=== PATIENT | male | born 1960 | race Caucasian/White ===

== ENCOUNTER 2017-03-28 18:57 | Emergency (ER) | payer OTHER ==
[2017-03-28] MEDS ORDERED: Dextrose 50% 50 mL Abboject IVP ONE ×2 (19:03→21:15)
[2017-03-28] MEDS ORDERED: Dextrose 50% 50 mL Abboject IVP STA ×2 (19:11→21:08)
[2017-03-28 19:44] LABS: % BASOPHILS 0.1 % (0.0-2.0); % EOSINOPHILS 0.4 % (0.0-5.0); % NEUTROPHILS 85.5 % (40.0-80.0); HEMATOCRIT 41.7 % (39.0-49.0); HEMOGLOBIN 14.1 gm/dL (13.2-17.3); MEAN CELL VOLUME 88.7 fl (80-99); MEAN CORPUSCULAR HGB CONC 33.8 pg (28.0-36.0); MEAN PLATELET VOLUME 6.9 fl; NEUTROPHILE ABSOLUTE 8.6 Th/cmm (1.8-8.0); PLATELET COUNT 204 Th/cmm (150-400); RED CELL DISTRIBUTION WIDTH 12.2 % (11.5-20.0)
[2017-03-28 20:01] LABS: ALB/GLOB RATIO 1.2 (1.0-1.8); ALKALINE PHOSPHATASE 77 U/L (34-104); ANION GAP 7.4 (7.0-16.0); BILIRUBIN,TOTAL 1.3 mg/dL (0.3-1.0); BUN - UREA NITROGEN 24 mg/dL (7-25); CALCIUM SERUM 9.4 mg/dL (8.6-10.3); CARBON DIOXIDE 27.8 mEq/L (21.0-31.0); CHLORIDE 101 mEq/L (98-107); GLUCOSE 137 mg/dL (70-105); POTASSIUM SERUM 3.2 mEq/L (3.5-5.1); SGOT 15 U/L (13-39); SGPT/ALT 13 U/L (7-52); SODIUM SERUM 133 mEq/L (136-145)
[2017-03-28 20:02] LABS: CHOLESTEROL 155 mg/dL (<200); TRIGLYCERIDES 449 mg/dL (<150)
[2017-03-28] MEDS ORDERED: Potassium Chloride Elixir 20 mEq /15 mL UDC PO ONE (20:09)
--- NOTE | 2017-03-28 20:13 | ED Physician Chart ---
Chief Complaint/HPI - Patient Information Date Seen:: 03/28/17 Time Seen:: 19:20 Chief Complaint:: hypoglycemic episode History of Present Illness:: THIS IS A 56 YO MALE BIB EMS FROM HOME BECAUSE HIS BLOOD SUGAR WAS ONLY 30. HE WAS ALTERED AND UNABLE TO GIVE AN ACCURATE ACCOUNT OF HIS SITUATION. HIS HEALTH RECORDS WERE SENT HERE FROM [place] AND IT WAS NOTED THAT HE IS DIABETIC, HYPERTENSIVE WITH HEART DISEASE WITH A STROKE IN THE PAST. Allergies:: Allergies Allergy/AdvReac Type Severity Reaction Status Date / Time No Known Allergies Allergy Verified 03/28/17 19:12 Vitals:: Vital Signs - 8 hr 03/28/17 19:14 Temp 97.5 F HR 79 RR 18 BP 205/62 O2 Sat % 99 Historian:: EMS, Medical Records Review:: Nurse's Note Reviewed, Transfer documents Reviewed Review of Systems - Review of Systems General/Constitutional: No fever, No chills, No weight loss, No weakness, No diaphoresis, No edema, No loss of appetite Skin: No skin lesions, No rash, No bruising, Other (THE PATIENT WAS UNABLE TO GIVE A REVIEW OF SYSTEMS) Head: No headache, No light-headedness Eyes: No loss of vision, No pain, No diplopia ENT: No earache, No nasal drainage, No sore throat, No tinnitus Neck: No neck pain, No swelling, No thyromegaly, No stiffness, No mass noted Cardio Vascular: No chest pain, No palpitations, No PND, No orthopnea, No edema Pulmonary: No SOB, No cough, No sputum, No wheezing GI: No nausea, No vomiting, No diarrhea, No pain, No melena, No hematochezia, No constipation, No hematemesis G/U: No dysuria, No frequency, No hematuria Musculoskeletal: No bone or joint pain, No back pain, No muscle pain Endocrine: No polyuria, No polydipsia Psychiatric: No prior psych history, No depression, No anxiety, No suicidal ideation Hematopoietic: No bruising, No lymphadenopathy Allergic/Immuno: No urticaria, No angioedema Neurological: No syncope, No focal symptoms, No weakness, No paresthesia, No headache, No seizure, No dizziness, No confusion, No vertigo Past Medical History - Past Medical History Obtainable: Yes Past Medical History: HTN, DM, CAD, CVA/TIA, Dyslipidemia, PUD/GERD Family History: None Social History: Non Smoker, No Alcohol, No Drug Use, Surgical History: Cholecystectomy, other (stent placed in the heart) Family Medical History - Family Member Father History Unknown: Yes Hx Family Diabetes: Yes Physical Exam - Physical Examination General/Constitutional: Awake, Well-developed, well-nourished, Alert, No distress, GCS 15, Non-toxic appearing, Ambulatory Other Gen/Cons comments:: THE PATIENT IS ALERT BUT CONFUSED WITH ILLOGICAL STATMENTS. Head: Atraumatic Eyes: Lids, conjuctiva normal, PERRL, EOMI Skin: Nl inspection, No rash, No skin lesions, No ecchymosis, Well hydrated, No lymphadenopathy ENMT: External ears, nose nl, Nasal exam nl, Lips, teeth, gums nl Neck: Nontender, Full ROM w/o pain, No JVD, No nuchal rigidity, No bruit, No mass, No stridor Respiratory: Nl effort/Exclusion, Clear to Auscultation, No Wheeze/Rhonchi/Rales Cardio Vascular: RRR, No murmur, gallop, rubs, NL S1 S2 GI: No tenderness/rebounding/guarding, No organomegaly, No hernia, Normal BS's, Nondistended, No mass/bruits, No McBurney tenderness : No CVA tenderness Extremities: No tenderness or effusion, Full ROM, normal strength in all extremities, No edema, Normal digits & nails Neuro/Psych: Alert/oriented, DTR's symmetric, Normal sensory exam, Normal motor strength, Judgement/insight normal, Mood normal, Normal gait, No focal deficits Misc: normal gait, Normal back, No paraspinal tenderness Labs/Radiology/EKG Results - Lab Results Results: Laboratory Tests 03/28/17 03/28/17 03/28/17 19:02 19:38 19:38 WBC 10.0 RBC 4.70 Hgb 14.1 Hct 41.7 MCV 88.7 MCH 30.0 MCHC Differential 33.8 RDW 12.2 Plt Count 204 MPV 6.9 Neutrophils % 85.5 H Lymphocytes % 9.0 L Monocytes % 5.0 Eosinophils % 0.4 Basophils % 0.1 Sodium Potassium Chloride Carbon Dioxide Anion Gap BUN Creatinine Est GFR ( Amer) Est GFR (Non-Af Amer) BUN/Creatinine Ratio Glucose POC Glucose 50 L Calcium Total Bilirubin AST ALT Alkaline Phosphatase Troponin I Total Protein Albumin Globulin Albumin/Globulin Ratio Triglycerides 449 H Cholesterol 155 LDL Cholesterol Direct 59 L HDL Cholesterol 28 03/28/17 03/28/17 19:38 19:38 WBC RBC Hgb Hct MCV MCH MCHC Differential RDW Plt Count MPV Neutrophils % Lymphocytes % Monocytes % Eosinophils % Basophils % Sodium 133 L Potassium 3.2 L Chloride 101 Carbon Dioxide 27.8 Anion Gap 7.4 BUN 24 Creatinine 1.0 Est GFR ( Amer) > 60.0 Est GFR (Non-Af Amer) > 60.0 BUN/Creatinine Ratio 24.0 Glucose 137 H POC Glucose Calcium 9.4 Total Bilirubin 1.3 H AST 15 ALT 13 Alkaline Phosphatase 77 Troponin I 0.02 Total Protein 7.1 Albumin 3.9 L Globulin 3.2 Albumin/Globulin Ratio 1.2 Triglycerides Cholesterol LDL Cholesterol Direct HDL Cholesterol - Radiology Results Results: chest x-ray = cardiomegaly - EKG Interpretations EKG Time:: 19:21 Rate & Rhythm: 65, nsr [place]: left axis Assessment - Assessment General Assessment: hypoglycemic episode and hypertension uncontrolled. ED Septic Shock - . Is Septic Shock (SBP<90, OR Lactate>4 mmol\L) present?: No - <6hrs of presentation: Vital Signs: Vital Signs - 8 hr 03/28/17 19:14 Temp 97.5 F HR 79 RR 18 BP 205/62 O2 Sat % 99 Reassessment (Disposition) - Reassessment Reassessment Condition:: Improved - Diagnosis Diagnosis:: HYPERTENSION UNCONTROLLED HYPOGLYCEMIC EPISODE - Patient Disposition Discharge/Transfer:: Against Medical Advice (the patient refused hospitalization and signed out ama. It was explained to him that he might have a stroke or even if he stops his care tonight.) Accepting Physician:: DR. COMBS AT [place] Discussion with Medical Provider:: BLOOD PRESSURES AND HYPOGLYCEMIC EPISODES. Transport Method:: ACLS Condition at Disposition:: Improved ED Discharge Plan - Patient Disposition Admit/Discharge/Transfer: TRANSFER TO ACUTE HOSP
[2017-03-28] MEDS ORDERED: Potassium Chloride Elixir 20 mEq /15 mL UDC ONE (20:14)
[2017-03-28 23:21] LABS: URINE BILIRUBIN NEGATIVE (NEGATIVE); URINE BLOOD SMALL (NEGATIVE); URINE COLOR YELLOW; URINE GLUCOSE (UA) 250 mg/dL (NEGATIVE); URINE KETONE NEGATIVE (NEGATIVE)
[2017-03-28 23:22] LABS: URINE BACTERIA OCCASIONAL /hpf (NONE SEEN); URINE EPITHELIAL CELLS OCCASIONAL /lpf (FEW); URINE PROTEIN >300 mg/dL (NEGATIVE); URINE UROBILINOGEN 0.2 E.U./dL (0.2 - 1.0); URINE WBC 0-2 /hpf (0-5)
--- NOTE | 2017-03-29 09:54 | Diagnostic Imaging Report ---
CHEST X-RAY: AP view INDICATION: Altered level of consciousness COMPARISON: None FINDINGS: There is no focal consolidation or pleural effusions The heart is normal in size. Degenerative changes of the spine are noted. IMPRESSION: No focal airspace consolidation identified.
== END 2017-03-28 23:05 | disposition left against medical advice (07) ==
LOC: ER 18:57
DX: E11.649 Type 2 diabetes mellitus with hypoglycemia without coma (principal); I10 Essential (primary) hypertension; I25.10 Atherosclerotic heart disease of native coronary artery without angina pectoris; K21.9 Gastro-esophageal reflux disease without esophagitis; Z86.73 Personal history of transient ischemic attack (TIA), and cerebral infarction without residual deficits; Z90.49 Acquired absence of other specified parts of digestive tract
CPT/HCPCS: 36415-UA; 71010-TC; 80053-TC; 80061-TC; 81001-TC; 82948-90; 84443-TC; 84484-TC; 85025-TC; 90799; 93005; 96374; 96375; Z7610